=== PATIENT | female | born 1975 | race Caucasian/White ===

== ENCOUNTER 2017-07-25 13:14 | Emergency (ER) | payer OTHER ==
[~2017-07-25 13:14] MED LIST: ALPR1TAB3 PO; BENT20TA PO; CLAR10TA13 PO; DIAZ5 PO; FERR324T4 PO; LORTA5 PO; PROP1TAB66 PO; VIIB20TA PO
[2017-07-25 13:30] VITALS: BP 102/56; PULSE 92; RESP 16; O2SAT 99
[2017-07-25] MEDS ORDERED: SODIUM CHLORIDE 0.9% FLUSH 10 ML FLUSH IVF PRN (13:45)
[2017-07-25] MEDS ORDERED: LORazepam 2 MG/ML VIAL IVS ONE (13:45)
[2017-07-25] MEDS ORDERED: ALPR1TAB3 PO (13:46)
[2017-07-25] MEDS ORDERED: PROP10TA6 PO (13:46)
[2017-07-25 13:58] VITALS: O2SAT 99
[2017-07-25 14:02] LABS: AUTOMATED NEUTROPHIL # 3.7 TH/MM3 (1.8-7.7); BASOPHIL % 0.7 % (0.0-2.0); EOSINOPHIL % 0.8 % (0.0-4.0); HEMOGLOBIN 11.9 GM/DL (11.6-15.3); LYMPH % 20.7 % (9.0-44.0); MEAN CELL VOLUME 99.3 FL (80.0-100.0); MEAN CORPUSCULAR HEMOGLOBIN 32.8 PG (27.0-34.0); MEAN PLATELET VOLUME 8.2 FL (7.0-11.0); MONO % 5.7 % (0.0-8.0); MONOCYTE # 0.3 TH/MM3 (0-0.9); NEUT % 72.1 % (16.0-70.0); PLATELET COUNT 231 TH/MM3 (150-450); RED BLOOD COUNT 3.63 MIL/MM3 (4.00-5.30); RED CELL DISTRIBUTION WIDTH 12.7 % (11.6-17.2)
[2017-07-25 14:11] LABS: CALCIUM 8.4 MG/DL (8.5-10.1)
[2017-07-25 14:12] LABS: BICARBONATE 22.9 MEQ/L (21.0-32.0)
[2017-07-25 14:15] LABS: CREATININE 0.82 MG/DL (0.50-1.00)
--- NOTE | 2017-07-25 14:16 | PD ---
HPI Chief Complaint: Seizure Time Seen by Provider: 13:28 Travel History International Travel<30 days: No Contact w/Intl Traveler<30days: No Traveled to known affect area: No History of Present Illness HPI The patient was seen and examined in the presence of the nurse. This patient is brought in by paramedics that she reportedly had a seizure in a store parking lot. She felt a strange sensation coming on and the next thing she knew she was on the ground. She is not sure if she hit her head. She does complain of headache. No neck symptoms. She reports that she's been taking Xanax 4 times a day for 10 years for anxiety and she has not taken it for a few days. She is not sure exactly how many. She denies ever having seizure problems before. No history of seizure disorder. Denies alcohol or drug abuse. No alleviating factors. Symptoms exacerbated by abrupt cessation of long-term addictive medication. Severity was moderate. Duration was a few minutes but I don't have an accurate time. A bystander told paramedics they saw seizure activity. There are no Eyewitnesses present for questioning. PFSH Past Medical History Anxiety: Yes Cancer: No Cardiovascular Problems: No (ANXIETY ATTACK) Diabetes: No Diminished Hearing: No Endocrine: No Gastrointestinal Disorders: Yes (GASTRITIS ; GERD ; IBS) GERD: Yes Genitourinary: No Hepatitis: No Hiatal Hernia: No Immune Disorder: No Musculoskeletal: Yes (NECK PAIN HX) Neurologic: No Psychiatric: Yes (ANXIETY ATTACKS) Reproductive: Yes (EXCESSIVE MENSTRUATION) Respiratory: No Thyroid Disease: No Tetanus Vaccination: > 5 Years Influenza Vaccination: No ?: Not Tubal Ligation: Yes (2012) Past Surgical History Body Medical Devices: NONE Section: Yes (2008, 2012) Ear Surgery: Yes (INSERTION EAR TUBES) Gynecologic Surgery: Yes ( X ; 2013 WITH ALEX TUBAL LIGATION; ) Hysterectomy: Yes Oral Surgery: Yes (T&A) Tonsillectomy: Yes Tympanostomy Tube: Yes Other Surgery: Yes Social History Alcohol Use: Yes (rarely) Tobacco Use: No Substance Use: No Allergies-Medications (Allergen,Severity, Reaction): Coded Allergies: penicillin G (Unverified Allergy, Severe, RASH, 07/25/17) RASH- CHILDHOOD -PT THINKS SERIOUS REACTION Reported Meds & Prescriptions Reported Meds & Active Scripts Active Reported Propranolol (Propranolol HCl) 10 Mg Tab 10 Mg PO Q12HR Alprazolam 1 Mg Tab 1 Mg PO Q6H PRN Review of Systems General / Constitutional: No: Fever Eyes: No: Visual changes HENT: Positive: Headaches Cardiovascular: No: Chest Pain or Discomfort Respiratory: No: Shortness of Breath Gastrointestinal: No: Abdominal Pain Genitourinary: No: Dysuria Musculoskeletal: No: Pain Skin: No Rash Neurologic: Positive: Headache, Seizures, No: Weakness Psychiatric: Positive: Anxiety, No: Depression Endocrine: No: Polydipsia Hematologic/Lymphatic: No: Easy Bruising Physical Exam Narrative GENERAL: Well-nourished, well-developed patient in no apparent distress. SKIN: Focused skin assessment reveals no rash and nodules. Skin is Warm and dry. HEAD: Atraumatic. Normocephalic. EYES: Pupils equal and round. No scleral icterus. No injection or drainage. ENT: No nasal bleeding or discharge. Mucous membranes pink and moist. NECK: Trachea midline. No JVD. No midline tenderness CARDIOVASCULAR: Regular rate and rhythm. No murmur appreciated. RESPIRATORY: No accessory muscle use. Clear to auscultation. Breath sounds equal bilaterally. GASTROINTESTINAL: Abdomen soft, non-tender, nondistended. Hepatic and splenic margins not palpable. MUSCULOSKELETAL: No obvious deformities. No clubbing. No cyanosis. No edema. NEUROLOGICAL: Awake with mild lethargy. No obvious cranial nerve deficits. Motor grossly within normal limits. Normal speech. PSYCHIATRIC: Appropriate mood and affect; insight and judgment reasonable . Data Data Last Documented VS Vital Signs Date Time Temp Pulse Resp B/P (MAP) Pulse Ox O2 Delivery O2 Flow Rate FiO2 07/25/17 14:56 69 16 108/68 (81) 100 Room Air Orders Orders Complete Blood Count With Diff (07/25/17 13:37) Basic Metabolic Panel (Bmp) (07/25/17 13:37) Ct Brain W/O Iv Contrast(Rout) (07/25/17 ) Blood Glucose (07/25/17 13:37) Ecg Monitoring (07/25/17 13:37) Iv Access Insert/Monitor (07/25/17 13:37) Oximetry (07/25/17 13:37) Sodium Chloride 0.9% Flush (Ns Flush) (07/25/17 13:45) Lorazepam Inj (Ativan Inj) (07/25/17 13:45) Ct Facial Bones W/O Iv Cont (07/25/17 ) Ondansetron Inj (Zofran Inj) (07/25/17 17:45) Chlordiazepoxide (Librium) (07/25/17 17:45) Labs Laboratory Tests Test 07/25/17 13:55 White Blood Count 5.0 TH/MM3 Red Blood Count 3.63 MIL/MM3 Hemoglobin 11.9 GM/DL Hematocrit 36.0 % Mean Corpuscular Volume 99.3 FL Mean Corpuscular Hemoglobin 32.8 PG Mean Corpuscular Hemoglobin Concent 33.0 % Red Cell Distribution Width 12.7 % Platelet Count 231 TH/MM3 Mean Platelet Volume 8.2 FL Neutrophils (%) (Auto) 72.1 % Lymphocytes (%) (Auto) 20.7 % Monocytes (%) (Auto) 5.7 % Eosinophils (%) (Auto) 0.8 % Basophils (%) (Auto) 0.7 % Neutrophils # (Auto) 3.7 TH/MM3 Lymphocytes # (Auto) 1.0 TH/MM3 Monocytes # (Auto) 0.3 TH/MM3 Eosinophils # (Auto) 0.0 TH/MM3 Basophils # (Auto) 0.0 TH/MM3 CBC Comment DIFF FINAL Differential Comment Blood Urea Nitrogen 12 MG/DL Creatinine 0.82 MG/DL Random Glucose 182 MG/DL Calcium Level 8.4 MG/DL Sodium Level 138 MEQ/L Potassium Level 3.3 MEQ/L Chloride Level 106 MEQ/L Carbon Dioxide Level 22.9 MEQ/L Anion Gap 9 MEQ/L Estimat Glomerular Filtration Rate 77 ML/MIN [facility] Medical Decision Making Medical Screen Exam Complete: Yes Emergency Medical Condition: Yes Medical Record Reviewed: Yes Differential Diagnosis Serax withdrawal seizure, vasovagal episode, syncope, arrhythmia Narrative Course I have reviewed the patient's electronic medical record. IV placed CBC is normal Metabolic profile is normal Brain CT is negative and facial bone CT is negative Patient is neurologically intact. Seems a bit lethargic from postictal state but answering questions appropriately. I gave her a small dose of 0.5 Ativan IV On recheck she is now more awake and alert. She doesn't plan of some nausea I gave her dose of Zofran and followed by Reginaldo Giving her prescriptions of those 2 medications She should discuss with her doctor long-term weaning off Xanax. My clinical suspicion was Xanax withdrawal seizure. However she is been observed for many hours without any repeat events Diagnosis Primary Impression: Withdrawal from benzodiazepine Qualified Codes: F13.239 - Sedative, hypnotic or anxiolytic dependence with withdrawal, unspecified Additional Impressions: Seizure concurrent with and due to anxiolytic withdrawal Head injury Qualified Codes: S09.90XA - Unspecified injury of head, initial encounter Additional Instructions: The patient was advised to follow up with their physician and return if they worsen. The patient was warned about potential sedation for the medications they will receive on prescription. Discuss long-term weaning off Xanax with Dr. Strickland Med/Other Pt SpecificInfo: Prescription(s) given Disposition: DISCHARGE HOME Condition: Stable Kong Valles MD Jul 25, 2017 14:16
--- NOTE | 2017-07-25 14:33 | RADRPT ---
EXAM DATE/TIME: 07/25/2017 14:01 [facility] COMPARISON: No previous studies available for comparison. INDICATIONS : Cephalgia, dizziness and nausea. Possible seizure. RADIATION DOSE: 58.51 CTDIvol (mGy) MEDICAL HISTORY : Gastroesophageal reflux disease. Inflammatory bowel disease. SURGICAL HISTORY : Tubal ligation. ENCOUNTER: Initial ACUITY: 1 day PAIN SCALE: 7/10 LOCATION: cranial TECHNIQUE: Multiple contiguous axial images were obtained of the head. Using automated exposure control and adj ustment of the mA and/or kV according to patient size, radiation dose was kept as low as reasonably a chievable to obtain optimal diagnostic quality images. DICOM format image data is available electro nically for review and comparison. FINDINGS: CEREBRUM: The ventricles are normal for age. No evidence of midline shift, mass lesion, hemorrhage or acute in farction. No extra-axial fluid collections are seen. Minimal incidental basalganglia calcifications . POSTERIOR FOSSA: The cerebellum and brainstem are intact. The 4th ventricle is midline. The cerebellopontine angle i s unremarkable. EXTRACRANIAL: The visualized portion of the orbits is intact. SKULL: The calvaria is intact. No evidence of skull fracture. CONCLUSION: Negative for acute process. Keon Recinos MD FACR on July 25, 2017 at 14:30 Board Certified Radiologist. This report was verified electronically.
[2017-07-25 14:56] VITALS: BP 108/68; PULSE 69; RESP 16; O2SAT 100
--- NOTE | 2017-07-25 15:38 | RADRPT ---
EXAM DATE/TIME: 07/25/2017 15:19 [facility] COMPARISON: No previous studies available for comparison. INDICATIONS : Trauma, fall from seizure. RADIATION DOSE: 29.80 CTDIvol (mGy) MEDICAL HISTORY : Seizures. SURGICAL HISTORY : None. ENCOUNTER: Initial ACUITY: 1 day PAIN SCORE: 4/10 LOCATION: Bilateral mandibular rami TECHNIQUE: Volumetric scanning of the facial bones was performed. Using automated exposure control and adjustme nt of the mA and/or kV according to patient size, radiation dose was kept as low as reasonably achiev able to obtain optimal diagnostic quality images. DICOM format image data is available electronic[employer]FastUnlock y for review and comparison. FINDINGS: ORBITS: The orbital and infraorbital osseous structures are intact. The retroconal structures have a normal configuration. No radiopaque foreign bodies are seen. NASAL BONE: The nasal bone and maxillary spine are intact ZYGOMATIC ARCHES: Symmetric without evidence of fracture. SINUSES: The maxillary, ethmoid and frontal sinuses are intact. No air-fluid levels seen. NASAL CAVITY: The nasal septum is intact and midline. The lacrimal ducts are intact. SOFT TISSUES: No radiopaque foreign bodies seen. No soft-tissue swelling is seen. INTRACRANIAL: No intracranial air seen. CRIBIFORM PLATE: Grossly intact. CONCLUSION: Negative for fracture. Keon Recinos MD FACR on July 25, 2017 at 15:35 Board Certified Radiologist. This report was verified electronically.
[2017-07-25] MEDS ORDERED: ONDANSETRON HCL 4 MG/2 ML VIAL IVP ONE (17:45)
[2017-07-25] MEDS ORDERED: chlordiazePOXIDE 25 MG CAP PO ONE (18:00)
[2017-07-25 18:21] VITALS: BP 112/59
== END 2017-07-25 18:23 | disposition home or self-care (01) ==
LOC: PHED 13:14
DX: F13.239 Sedative, hypnotic or anxiolytic dependence with withdrawal, unspecified (principal); R56.9 Unspecified convulsions; K21.9 Gastro-esophageal reflux disease without esophagitis; S09.90XA Unspecified injury of head, initial encounter; W19.XXXA Unspecified fall, initial encounter; Y92.481 Parking lot as the place of occurrence of the external cause
CPT/HCPCS: 70450; 70486; 80048; 85025; 96374; 96375; 99285; J2060; J2405